=== PATIENT | female | born 1985 | race Caucasian/White ===

== ENCOUNTER → 2017-03-10 | Outpatient (CLI) | payer OTHER ==
[~2017-03-10] MED LIST: ASPIR 8181 MG PO; CELEXA10 MG PO; NABUMETONE 750750 M1 PO; ONDANSETRON HCL4 M2 PO; SINGULAIR4 M1 PO
== END ==
LOC: M.ULTRA 03-09 07:30
DX: K59.00 Constipation, unspecified (principal)

== ENCOUNTER → 2017-03-22 | Outpatient (CLI) | payer OTHER | LOC: M.NUC 07:31 | DX: R10.11 Right upper quadrant pain (principal) ==

== ENCOUNTER 2017-10-29 13:38 | Emergency (ER) | payer OTHER ==
[~2017-10-29] VITALS: Ht 157.5 cm; Wt 61.2 kg
[2017-10-29] MEDS ORDERED: SINGULAIR4 M1 PO (13:49)
[2017-10-29] MEDS ORDERED: CELEXA10 MG PO (13:50)
[2017-10-29] MEDS ORDERED: ASPIR 8181 MG PO (13:50)
[2017-10-29] MEDS ORDERED: NABUMETONE 750750 M1 PO (17:10)
[2017-10-29] MEDS ORDERED: ONDANSETRON HCL4 M2 PO (17:13)
[2017-10-29 17:22] VITALS: BP 111/67
== END 2017-10-29 17:23 | disposition home or self-care (01) ==
LOC: M.ERS 13:38
DX: S06.0X0A Concussion without loss of consciousness, initial encounter (principal); F32.9 Major depressive disorder, single episode, unspecified; F41.9 Anxiety disorder, unspecified; W18.2XXA Fall in (into) shower or empty bathtub, initial encounter; Y93.89 Activity, other specified; Y92.89 Other specified places as the place of occurrence of the external cause; Y99.8 Other external cause status